=== PATIENT | male | born 1955 | race Caucasian/White ===

== ENCOUNTER 2017-03-27 11:39 | Inpatient (IN) | payer OTHER ==
[~2017-03-27] VITALS: Ht 165.1 cm; Wt 68.3 kg
--- NOTE | ~2017-03-27 | EEG ---
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 As I understand, the EEG was done without any sedation. Background activity is about 4-5 Hz and 30 microvolt. It is a very poorly formed background activity throughout the record. Photic stimulation is unremarkable. IMPRESSION: This is a severely abnormal electroencephalogram, which will be consistent with a diagnosis of encephalopathy. However, the finding is nonspecific and can occur in multiple other etiologies. Therefore, clinical correlation is recommended. Thank you very much for this referral. <ELECTRONICALLY SIGNED> By: Simon Woods MD 04/07/17 1816 1444 1609 Simon Woods MD /nt
--- NOTE | ~2017-03-27 | 2DMMODE ---
[facility] [address] [place] [address] 2 D/M-MODE ECHOCARDIOGRAM Name: OLENA COLES Room #: 215-P ADM IN M.R.#: [id number] Admission: 03/27/17 Attend Phys: Indio Suazo, Discharge: Date of : 59 Date of Service: 03/28/17 0814 Report #: [id number] THIS REPORT FOR: //name// APPROVED REPORT Study performed: 03/28/2017 06:55:18 EXAM: Limited 2D, Doppler, and color-flow Echocardiogram Patient Location: Bedside Room #: 215 Status: routine BSA: 1.77 HR: 84 bpm BP: 118/71 mmHg Other Information Study Quality: Adequate/patient in distress Indications Limited follow up echo for short of breath, obtain pulmonary pressures, elevated D-dimer. Hx: ISCM, MD, ICD 2D Dimensions LVDd: 65.12 mm Tricuspid Valve TR Peak Yonas.: 3.13 m/s RAP Estimate: 5.00 mmHg TR Peak Gr.: 39.27 mmHg PA Pressure: 44.00 mmHg Left Ventricle Left ventricle is dilated. Left ventricular systolic function is moderately decreased. Extensive inferior akinesis LVEF is 35%. Right Ventricle The right ventricle is normal size. The right ventricular systolic function is normal. Device lead is present in the right ventricle. Atria Left atrium is dilated. The right atrium size is normal. Aortic Valve The aortic valve is normal in structure. Trace aortic regurgitation. There is no aortic valvular stenosis. Mitral Valve [facility] [address] [place] [address] 2 D/M-MODE ECHOCARDIOGRAM Name: SANKETOLENA Room #: 215-P [facility] IN ..#: [id number] Admission: 03/27/17 Attend Phys: Indio Suazo, Discharge: Date of : 59 Date of Service: 03/28/17813 Report #: [id number] The mitral valve is normal in structure. Severe, eccentric mitral regurgitation. Tricuspid Valve The tricuspid valve is normal in structure. Trace tricuspid regurgitation. Estimated PAP is 45mmHg. Great Vessels IVC is normal in size and collapses >50% with inspiration. Pericardium There is no pericardial effusion. <Conclusion> Left ventricular systolic function is moderately decreased. Extensive inferior akinesis LVEF is 35%. Left atrium is dilated. The aortic valve is normal in structure. Trace aortic regurgitation. The mitral valve is normal in structure. Severe mitral regurgitation. Pulmonary artery pressure of 45mmHg There is no pericardial effusion. <ELECTRONICALLY SIGNED> By: Wali Blanton MD, [facility] 03/28/17813 3 0814 Wali Blanton MD, FACC /INF
--- NOTE | ~2017-03-27 | HC ---
[facility] [place] [address] CONSULTATION Name: ARIANAOLENA SALCIDO Morris Room #: 242-P [facility] IN .R.#: [id number] Admission: 03/27/17 Attend Phys: Indio Suazo DO Discharge: Date of : 59 Report #: [id number] THIS REPORT FOR: //name// CC: FAM unknown Indio Suazo DATE OF SERVICE: 03/28/2017 HISTORY OF PRESENT ILLNESS: This is a 61-year-old male patient who was evaluated by me because the CT scan was abnormal. I talked to the nurses looking after this patient. The family is not available. I talked to Dr. Combs. The history is complicated in this patient. As I understand, this patient has a pacemaker. He was admitted with cardiac problems and he had elevated troponin. He has a history of cardiomyopathy. He was feeling anxious and then he had a cardiopulmonary arrest. It was a difficult resuscitation as I understand from Dr. Noland, but they finally were able to revive him. If I understand correctly, the cardiac arrest was around 10:30. Since then, the patient has been unresponsive. His pupils are not reactive and he is having involuntary movements. He is not on cooling protocol anymore as I understand. So, the scenario is that around 10:30, he had a cardiac arrest with ventricular fibrillation as I understand. Since then, his blood pressure is low and he is on pressor. As a routine evaluation for the cardiopulmonary arrest, a CT scan was done. CT scan showed a question of stroke, which is evolving in this patient and because of that, Neurology consultation was requested after the CT scan was done. REVIEW OF SYSTEMS: Indicate that this patient has numerous medical problems and those problems were reviewed. Even prior to this arrest, it looks like this patient had hypoxemia and elevated troponin. He also has a prior history of coronary artery disease. This patient also has a history of nicotine use. He has a history of cardiomyopathy. PAST MEDICAL HISTORY: Positive for pretty significant kidney problems and he also has a pacemaker as I understand. FAMILY HISTORY: Unavailable. SOCIAL HISTORY: Does have a history of smoking. PHYSICAL EXAMINATION: Pretty limited in this patient. This patient is having involuntary movements, which is difficult to pinpoint, but may be seizures. Pupils are not reactive according to nurses. He is getting a PICC line placed at the moment. 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 [facility] [address] [place] [address] CONSULTATION Name: OLENA COLES Room #: 242-P [facility] IN ..#: [id number] Admission: 03/27/17 Attend Phys: Indio Suazo DO Discharge: Date of : 59 Report #: [id number] How severe and how reversible it is we need to determine with further testing. He does appear to have question of ischemia, but that may be just part of his ischemic encephalopathy. Even if he had a stroke, he never showed any symptoms of that and that should not cause him that much symptom as he is having. It looks like he may have had an AR. He had a cardiac arrest and even if he has a CT scan, it looks like an incidental finding and his biggest problem appear to be hypoxic encephalopathy. His treatment is difficult. If we had an MRI that will be a contraindication for TPA. Otherwise, also the patient is well beyond the 3-hour window for any TPA and the question of stroke is not even fully established in this patient. We cannot even do any further evaluation. He has a pacemaker, so we cannot do an MRI. His BUN and creatinine is very high, so we cannot do a CT angio or CT perfusion. No family member is there and as mentioned above when the consult was called, it was well beyond 3 hours window for TPA anyway, but as mentioned above, the finding of stroke on the CT scan does not explain his symptom and his symptoms appear to be secondary to hypoxic encephalopathy. We will discuss with the family. I will get an EEG done. I will start him on Keppra. After EEG is available, we will try to talk to the family. A supplemental note will be dictated after the EEG is reviewed and after I had an opportunity to talk to the family. Thank you very much for this referral. <ELECTRONICALLY SIGNED> By: Simon Woods MD 04/07/17 1815 1445 7161 Simon Woods MD /nt
--- NOTE | ~2017-03-27 | EKG ---
[address] [address] ELECTROCARDIOGRAM REPORT Name: OLENA COELS Room #: 242-P ADM IN M.R.#: [id number] Admission: 03/27/17 Attend Phys: Indio Suazo DO Discharge: Date of : 59 Report #: [id number] THIS REPORT FOR: //name// [facility] Test Date: 2017-04-06 Test Time: 15:14:59 Pat Name: OLENA SANKET Department: Room: 242 P Gender: M Policy Cancellation Clerk: deandra : 1955 Requested By: Doug Low Order Number: [id number] MD: Doug Low Measurements Intervals [place] Rate: 89 P: 55 SC: 140 QRS: -81 QRSD: 170 T: 27 QT: 449 QTc: 547 Interpretive Statements Sinus rhythm Nonspecific IVCD with LAD Inferior infarct, old Abnormal lateral Q waves Compared to ECG 03/27/2017 12:08:36 Intraventricular conduction delay now present Myocardial infarct finding now present Q waves now present Electronically Signed On 04-06-2017 15:58:58 [employer] by Doug Low [email or web address] <ELECTRONICALLY SIGNED> By: Doug Low MD 04/06/17 1558 1514 1514 Doug Low MD /EPI
--- NOTE | ~2017-03-27 | EEG ---
[facility] [place] [address] ELECTROENCEPHALOGRAM Name: OLENA COLES Room #: 242-P [facility] IN M.R.#: [id number] Admission: 03/27/17 Attend Phys: Indio Suazo DO Discharge: Date of : 59 Report #: [id number] THIS REPORT FOR: //name// CC: FAM unknown Indio Suazo DATE OF SERVICE: 04/07/2017 This patient's EEG was done by placing the electrodes by standard 10/20 system of electrode placement. Both referential and sequential montages were used for recording. Background activity is low voltage and appeared to be about 5 Hz and 5 microvolt. It appeared to be showing DICTATION ENDS HERE See dee dictation <ELECTRONICALLY SIGNED> By: Simon Woods MD 04/07/17 1818 1147 1156 Simon Woods MD /nt
--- NOTE | ~2017-03-27 | EKG ---
[address] [address] ELECTROCARDIOGRAM REPORT Name: OLENA COLES Room #: 215-P ADM IN M.R.#: [id number] Admission: 03/27/17 Attend Phys: Indio Suazo DO Discharge: Date of : 59 Report #: [id number] THIS REPORT FOR: //name// [facility] ED Test Date: 2017-03-27 Test Time: 12:08:36 Pat Name: OLENA COLES Department: Room: 215 Gender: M Can Repairer: MARLEE : 1955 Requested By: Elliot Castillo Order Number: [id number] MD: Doug Low Measurements Intervals [place] Rate: 80 P: 60 VT: 150 QRS: -67 QRSD: 156 T: 74 QT: 439 QTc: 507 Interpretive Statements Ventricular-paced complexes No further analysis attempted due to paced rhythm Compared to ECG 01/26/2017 08:32:32 No significant changes Electronically Signed On 03-28-2017 8:22:43 BEZEL CUTTER by Doug Low [email or web address] <ELECTRONICALLY SIGNED> By: Doug Low MD 03/28/17 0822 07 Doug Low MD /[facility]
--- NOTE | ~2017-03-27 | HC ---
[facility] [place] [address] CONSULTATION Name: ARIANALOLYOLENA Caceres Room #: 242-P [facility] IN M.R.#: [id number] Admission: 03/27/17 Attend Phys: Indio Suazo DO Discharge: 04/10/17 Date of : 59 Report #: [id number] THIS REPORT FOR: //name// CC: FAM unknown Indio Suazo DATE OF SERVICE: 03/27/2017 REASON FOR CONSULTATION: Hypoxemia. IMPRESSION: 1. Hypoxemia, question etiology. 2. History of chronic obstructive pulmonary disease. 3. Possible pulmonary embolus with elevated D-dimer and recent travel. 4. Diarrhea and dehydration. 5. Acute kidney injury. 6. History of severe mitral regurgitation, cardiomyopathy. 7. History of hypertension. 8. Elevated troponin. PLAN: We will do mild hydration, aerosol therapy, VQ and Venous Doppler, we will use heparin for now and we will discuss further depending on renal situation. 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 The patient with decreased appetite last 3 days, abdominal pain, loose stools, positive dyspnea. No definite palpitations. ALLERGIES: None known. PAST SURGICAL HISTORY: [employer] biventricular ICD, strabismus surgery and repair. FAMILY HISTORY: Diabetes. SOCIAL HISTORY: Positive tobacco. Occasional ETOH. REVIEW OF SYSTEMS: Denies CHF, hyperlipidemia, DJD, hypertension, MR, Bi-V ICD, hypothyroidism. PHYSICAL EXAMINATION: VITAL SIGNS: Temperature 98.8, pulse 81, respiration 16, BP last in computer 93/43. GENERAL: Alert, oriented recognized my name. LUNGS: Decreased. Mild wheeze. [facility] [address] [place] [address] CONSULTATION Name: ARIANALOLYOLENA Room #: 242-P [facility] IN ..#: [id number] Admission: 03/27/17 Attend Phys: Indio Suazo DO Discharge: 04/10/17 Date of : 59 Report #: [id number] HEART: Regular with murmur. ABDOMEN: Bowel sounds present. EXTREMITIES: Showed no calf tenderness. LABORATORY DATA: D-dimer 1.42. BNP 1955. Chest x-ray, no acute. BUN 62, creatinine 3.6, sodium 130. White count 9.7, hemoglobin 14.7, platelets 148. We will follow closely with you. <ELECTRONICALLY SIGNED> By: Kelvin Mendez MD 05/07/17 2219 1721 0241 Kelvin Mendez MD /nt
--- NOTE | ~2017-03-27 | EEG ---
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 EEG was done by placing the electrodes by standard 10/20 system of electrode placement. Both referential and sequential montages were used for recording. A lot of artifact is present and the EEG virtually is uninterpretable. If cortical activity is present, it is very low amplitude activity, but it is almost impossible to distinguish from artifact. Photic stimulation is unremarkable. IMPRESSION: This patient's EEG is intermixed with lot of artifact and is virtually uninterpretable. Cortical activity appeared to be markedly suppressed and if present is masked by all the artifact which is there. A repeat EEG will be done in this patient in about 48 hours from this present EEG. Thank you very much for this referral. <ELECTRONICALLY SIGNED> By: Simon Woods MD 04/07/17 1816 0948 1038 Simon Woods MD /nt
--- NOTE | ~2017-03-27 | EEG ---
[facility] [place] [address] ELECTROENCEPHALOGRAM Name: OLENA COLES Room #: 242-P DIS IN M.R.#: [id number] Admission: 03/27/17 Attend Phys: Indio Suazo DO Discharge: 04/10/17 Date of : 59 Report #: [id number] THIS REPORT FOR: //name// CC: FAM unknown Indio Suazo DATE OF SERVICE: 04/09/2017 This patient is being evaluated for altered mental status. EEG was done by placing the electrodes by standard 10/20 system of electrode placement. Both referential and sequential montages were used for recording. Background activity in this patient's EEG is about 6 Hz and 30 microvolts. It shows a pattern suggestive of , but not classical for that. Photic stimulation is unremarkable. IMPRESSION: This is an abnormal EEG because it is consistent with encephalopathy. Thank you very much for this referral. <ELECTRONICALLY SIGNED> By: Simon Woods MD 04/10/17 1901 1312 1349 Simon Woods MD /nt
--- NOTE | ~2017-03-27 | HC ---
[facility] [place] [address] CONSULTATION Name: OLENA COLES Room #: 242-P ADM IN M.R.#: [id number] Admission: 03/27/17 Attend Phys: Indio Suazo DO Discharge: Date of : 59 Report #: [id number] THIS REPORT FOR: //name// CC: FAM unknown Indio Suazo DATE OF SERVICE: 03/27/2017 REASON FOR CONSULTATION: Acute kidney injury. REASON FOR PRESENTATION: Shortness of breath. HISTORY OF PRESENT ILLNESS: This is a very complicated 61-year-old with past medical history of chronic kidney disease. His best creatinine back in December 2016 was 1.4. It looks like that he suffers from an extensive cardiac history including and not limited to cardiomyopathy with an ejection fraction of around 20%. He is also known to have severe mitral regurgitation with large inferior wall infarct. He has had recurrent ventricular tachycardia status post biventricular ICD placement. This was also thought to be due to ischemic events. He is in the process of having being evaluated for some valvular procedures including the possibility of valve replacement. He presented with diarrhea, shortness of breath. He lost his appetite in the last 3 days. He was visiting [place] and he became more lethargic. He had incontinence of his stool. He also reported to increasing shortness of breath above his baseline. No PND or orthopnea. No syncopal episodes. He presented for further evaluation and management and was found to have an acute kidney injury with a creatinine of around 3.6. Back in October of this year, he had a cardiac catheterization, which revealed dilated left ventricle with an ejection fraction of 25% and severe mitral regurgitation. The details of his anatomy are well documented in the discharge summary and in the cardiac catheterization report. Of note is the fact that he was on losartan, spironolactone. ALLERGIES: None. MEDICATIONS: 1. Amiodarone. 2. Lipitor. 3. Carvedilol. 4. Losartan. 5. Spironolactone. 6. Levothyroxine. 7. Torsemide. PAST MEDICAL HISTORY: 1. Coronary artery disease. 2. Hyperlipidemia. [facility] [address] [place] [address] CONSULTATION Name: OLENA COLES Room #: 242-P [facility] IN ..#: [id number] Admission: 03/27/17 Attend Phys: Indio Suazo DO Discharge: Date of : 59 Report #: [id number] 3. Severe ischemic cardiomyopathy. 4. Mitral regurgitation, severe. 5. Status post biventricular ICD placement. 6. Hypothyroidism. 7. Coronary artery disease. 8. CKD with a baseline creatinine of around 1.5. PAST SURGICAL HISTORY: 1. ICD. 2. Strabismus repair. FAMILY HISTORY: Significant for hypertension. SOCIAL HISTORY: No drug or alcohol abuse. He smokes cigarettes. REVIEW OF SYSTEMS: GENERAL: No fever or chills. CARDIOVASCULAR: As per the history of present illness. PULMONARY: As per the history of present illness. GASTROINTESTINAL: As per the history of present illness. GENITOURINARY: No frequency, no urgency. PHYSICAL EXAMINATION: GENERAL: He was alert, in severe respiratory distress. VITAL SIGNS: Blood pressure initially was 170/110 in the arm, temperature 37.1. However, he dropped his blood pressure significantly. HEAD AND NECK: No jugular venous distention. CHEST: Decreased air entry bilaterally, but no crackles. MUSCULOSKELETAL: No rub detected, gallop is present. ABDOMEN: Soft, nontender. LOWER EXTREMITIES: No edema. LABORATORY DATA: Reviewed. Sodium 130, potassium 3.8, BUN was 62 and creatinine of 3.6. Platelet count was 148. Chest x-ray reviewed, no infiltrate. ASSESSMENT, IMPRESSION AND PLAN: 1. Urinary tract infection. 2. Chronic kidney disease. 3. Respiratory failure. 4. Extensive cardiac history including and not limited to ischemic cardiomyopathy, ventricular tachycardia, heart failure with an ejection fraction of around 25%, severe mitral regurgitation. 5. The patient's acute kidney injury seems to be all prerenal. I will send appropriate laboratory investigation. Hold all nephrotoxins. Hold blood [address] [address] CONSULTATION Name: OLENA COLES Room #: 242-P [facility] IN .R.#: [id number] Admission: 03/27/17 Attend Phys: Indio Suazo DO Discharge: Date of : 59 Report #: [id number] pressure medications given the significant reduction in his blood pressure. Start gentle hydration. Workup for his acute respiratory failure is being implemented including ruling him out for pulmonary embolism. 6. Gastrointestinal workup for his diarrhea. 7. Rule out influenza. 8. Ultrasound of both kidneys. 9. Place Hernandez catheter for strict input and output. 10. Reevaluate with blood gas. 11. Pulmonary consultation. 12. We will continue to follow along. <ELECTRONICALLY SIGNED> By: Hamida James MD 04/04/17 0953 2157 0256 Hamida James MD /nt
--- NOTE | ~2017-03-27 | DEA ---
[facility] [place] [address] SUMMARY Name: OLENA COLES Morris Room #: 242-P [facility] IN M.R.#: [id number] Admission: 03/27/17 Attend Phys: Indio Suazo DO Discharge: 04/10/17 Date of : 59 Report #: [id number] THIS REPORT FOR: //name// CC: FAM unknown Indio Suazo DATE OF SERVICE: 04/10/2017 DATE AND TIME OF : 04/10/2017 at 1345. HOSPITAL COURSE: The patient is a 61-year-old gentleman that was admitted after a trip to [place]. He had known severe mitral regurgitation and had not pursued care regarding this. He was found to be in congestive heart failure and admitted. Unfortunately, he developed a PEA with cardiac arrest with anoxic encephalopathy. He had been intubated after chest compressions and was stabilized. Unfortunately, he did not recover from this. After several days of intervention as well as neurology consultation, he was extubated per family wishes, and he was made a DNR/DNI and peacefully at the above date and time. The patient's body was released to the family's home of choice. <ELECTRONICALLY SIGNED> By: Indio Suazo DO 04/17/17 1443 1255 Amirah Suazo DO /nt
--- NOTE | ~2017-03-27 | EEG ---
[facility] [place] [address] ELECTROENCEPHALOGRAM Name: OLENA COLES Morris Room #: 242-P ADM IN M.R.#: [id number] Admission: 03/27/17 Attend Phys: Indio Suazo DO Discharge: Date of : 59 Report #: [id number] THIS REPORT FOR: //name// CC: FAM unknown Indio Suazo DATE OF SERVICE: 04/01/2017 This patient's EEG was done for comparison. EEG demonstrated about 6-7 Hz and 30 microvolt. This background activity sometime on the right side give a suggestion of burst suppression or periodic lateralizing epileptiform discharges. Photic stimulation is unremarkable. IMPRESSION: This patient's EEG continued to be significantly abnormal consistent with the diagnosis of encephalopathy. It appeared to be worse on the right side as compared to the left side and therefore, clinical correlation is recommended. Thank you very much for this referral. <ELECTRONICALLY SIGNED> By: Simon Woods MD 04/07/17 1816 1657 1712 Simon Woods MD /nt
--- NOTE | ~2017-03-27 | EEG ---
[facility] [place] [address] ELECTROENCEPHALOGRAM Name: OLENA COLES Room #: 242-P ADM IN M.R.#: [id number] Admission: 03/27/17 Attend Phys: Indio Suazo DO Discharge: Date of : 59 Report #: [id number] THIS REPORT FOR: //name// CC: FAM unknown Indio Suazo DATE OF SERVICE: 04/07/2017 This patient is being evaluated for altered mental status. EEG was done by placing the electrodes by standard 10/20 system of electrode placement. Both referential and sequential montages were used for recording. Background activity in this patient's EEG is about 5 Hz and 5-10 microvolt is a very low amplitude activity. Pattern suggestive of burst suppression was noticed. Photic stimulation was unremarkable. IMPRESSION: This is a severely abnormal EEG consistent with encephalopathy. The patient's EEG has deteriorated since last time. Correlation to see if he is on sedation or not should be done. The best information I have is that he is not on any sedation. <ELECTRONICALLY SIGNED> By: Simon Woods MD 04/07/17 1817 1149 1227 Simon Woods MD /nt
--- NOTE | ~2017-03-27 | HC ---
[facility] [place] [address] CONSULTATION Name: ARIANAOLENA SALCIDO Morris Room #: 250-P ADM IN M.R.#: [id number] Admission: 03/27/17 Attend Phys: Indio Suazo DO Discharge: Date of : 59 Report #: [id number] THIS REPORT FOR: //name// CC: FAM unknown Indio Suazo DATE OF SERVICE: 03/29/2017 ATTENDING PHYSICIAN: Dr. Suazo. REASON FOR CONSULTATION: Suspected aspiration pneumonitis. HISTORY OF PRESENT ILLNESS: Chart reviewed, the patient is examined. This is a 61-year-old man with extensive medical history given his age, much revolves around cardiac disease, has severe atherosclerotic coronary artery disease with previous acute myocardial infarctions, numerous, has mitral valve regurgitation that is severe. He does have a cardiomyopathy as well with an EF of 35%, who was admitted with progressive dyspnea, did have associated chest pain, dry cough and diarrhea as well. He was evaluated. He was found to have negative C. diff, was ultimately deteriorated and subsequently admitted to the hospital. In spite of defibrillator, he did require resuscitation due to bradycardia. He is currently intubated, mechanical ventilatory support. He has had some fevers. X-ray now shows evidence of pulmonary infiltrates, suspected aspiration. Sputum culture is pending, although Gram stain showed gram-positive cocci in pairs. Empirically, he has been placed on ampicillin and sulbactam at a reduced dose due to some renal failure with a creatinine in the 2-3 range. He is not responsive at this point. ALLERGIES: NONE KNOWN. MEDICATIONS: Include vancomycin, was started today. Midazolam, Unasyn, budesonide, levetiracetam, ipratropium albuterol inhaler. He is on Levophed as well, amiodarone, levothyroxine, atorvastatin and carvedilol. PAST MEDICAL HISTORY: As described above, AICD since 2016. Acute MN x 4. Congestive heart failure with setting of cardiomyopathy. Does have anxiety, hypertension, severe mitral regurgitation, hyperlipidemia, history of anxiety as well. SOCIAL HISTORY: Does smoke cigarettes, occasional ethanol. FAMILY HISTORY: Noncontributory. REVIEW OF SYSTEMS: Not obtainable. PHYSICAL EXAMINATION: [facility] [address] [place] [address] CONSULTATION Name: OLENA COLES Morris Room #: [address] [place] [address] [place] [facility].#: [id number] Admission: 03/27/17 Attend Phys: Indio Suazo DO Discharge: Date of : 59 Report #: [id number] GENERAL: Appears chronically ill, undernourished. He is supine, he is intubated. He is not responsive. VITAL SIGNS: Temperature 100.4, pulse 81, respirations 23, blood pressure 121/76. SKIN: Warm, dry. HEENT: Tubes in place. NECK: Supple. LUNGS: Few scattered coarse breath sounds. HEART: Regular. He does have a loud systolic murmur. ABDOMEN: Soft, nontender, nondistended. There are no peritoneal signs. GENITOURINARY: Deferred. RECTAL: Deferred. LABORATORY DATA: CBC: White count of 5.3, H and H 11.7 and 32.9, platelets of 106. MRSA by LATIA was negative. RVP, respiratory viral panel is pending. Sputum in progress. Gram stain did show many PMNs, many gram-positive cocci in pairs. Electrolytes: Sodium 137, potassium 3.1, chloride 100, bicarbonate is 27, BUN and creatinine 64 and 2.5, glucose of 121. ABG: PH 7.451, pCO2 of 35.6, pO2 of 86.3 and that was on 40%. Lactate was noted to be 1.71. Urinalysis, 0-5 white cells, 1-9 bacteria, previously has been 6-15 white cells, greater than 30 bacteria. Influenza antigen was negative. ProBNP elevated at 1957. Hepatic panel: AST of 1746, ALT of 933, total bilirubin of 1.2, albumin total protein of 6.1. Free T4 of 3.4. Free T3 was 3.33. TSH is low at 0.007. Chest x-ray, basilar atelectasis. ASSESSMENT: Post-code, likely complicated by aspiration with pneumonitis. We will continue empiric therapy. Culture may well be helpful in this setting. There appears to be some degree of anoxic encephalopathy as well that will certainly be the feature going forward, that is the case. We will adjust antimicrobials as needed. <ELECTRONICALLY SIGNED> By: Dawood Dumont MD 03/30/17 [id number] Dawood Dumont MD /nt
[~2017-03-27 11:39] MED LIST: ALBUTEROL2.5 MG/0.5 INH; ALDACTONE25 MG PO; ATORVASTATIN CA40 MG PO; CARVEDILOL12.5 MG PO; CEPACOL SORE T1 EAC7 PO; COZAAR 25 MG TA25 M1 PO; DEMADEX20 MG PO; MEXILETINE 150150 MG PO; NICOTINE TRANSD21 M1 TRANSDERM; PACERONE 200 M200 M1 PO; SYNTHROID100 MCG PO
[2017-03-27 12:17] LABS: HEMATOCRIT 41.5 % (42.0-52.0); HEMOGLOBIN 14.7 gm/dL (14.0-18.0); MCH 33.9 pg (26.0-34.0); MCHC 35.3 g/dL (28.0-37.0); MCV 95.8 fL (80.0-100.0); RBC 4.33 mil/uL (4.50-6.00); WBC 9.7 thou/uL (4.0-11.0)
[2017-03-27 12:21] LABS: CALCIUM 8.7 mg/dL (8.5-10.1); CREATININE 3.6 mg/dL (0.7-1.3); POTASSIUM 3.8 mmol/L (3.5-5.1)
[2017-03-27 12:34] LABS: TROPONIN-I 0.68 ng/mL (<0.06)
[2017-03-27 13:42] VITALS: BP 178/139
[2017-03-27 14:58] VITALS: BP 93/43
[2017-03-27 18:24] LABS: APTT 31.6 Seconds (24.5-32.8); INR 1.1; PROTIME 11.6 Seconds (9.3-11.4)
[2017-03-27 18:25] LABS: BE(vivo) -3.8 mmol/L (-2 to +3); HCO3 22.8 mmol/L (22.0-26.0); PO2 104.3 mmHg (80.0-100.0); sO2 97.2 % (92.0-98.0)
[2017-03-27 18:27] LABS: pH 7.303 (7.360-7.450)
[2017-03-27 19:32] VITALS: BP 92/64
[2017-03-27 19:59] LABS: URINE BILIRUBIN NEGATIVE (Negative); URINE BLOOD 2+ (Negative); URINE CLARITY CLEAR; URINE COLOR YELLOW; URINE GLUCOSE-RANDOM* NEGATIVE (Negative); URINE KETONES NEGATIVE (Negative); URINE LEUKOCYTES NEGATIVE (Negative); URINE NITRITE NEGATIVE (Negative); URINE PROTEIN (DIPSTICK) NEGATIVE (Negative); URINE UROBILINOGEN 0.2 E.U./dl (0.2-1.0)
[2017-03-27 20:08] LABS: URINE CREATININE-RANDOM* 107.4 mg/dL
[2017-03-27 20:17] LABS: BACTERIA >30 Many /HPF (None Seen); FINE GRANULAR CASTS >10 Many /LPF (None Seen); HYALINE CASTS >10 Many /LPF (None Seen); SQUAMOUS 0-3 Few /LPF (0-3); URINE RBC 0-2 Rare /HPF (0-2); URINE WBC 6-15 Few /HPF (0-5)
[2017-03-27 20:18] LABS: AMORPHOUS URATES Few /LPF (None Seen); MUCUS 4-6 Moderate strn/LPF (None Seen)
[2017-03-27 23:55] VITALS: BP 101/55
[2017-03-28] VITALS (65 sets, daily range): BP systolic 77–152; BP diastolic 37–107
[2017-03-28 03:59] LABS: ALBUMIN 3.2 g/dL (3.4-5.0); CALCIUM 8.1 mg/dL (8.5-10.1); CREATININE 2.8 mg/dL (0.7-1.3); PHOSPHORUS 6.2 mg/dL (2.5-4.9); POTASSIUM 3.6 mmol/L (3.5-5.1)
[2017-03-28 04:42] LABS: HEMATOCRIT 36.2 % (42.0-52.0); MCH 33.6 pg (26.0-34.0); MCHC 34.9 g/dL (28.0-37.0); MCV 96.4 fL (80.0-100.0); PLATELET COUNT 131 thou/uL (150-400); RBC 3.76 mil/uL (4.50-6.00); RDW 13.5 % (10.5-14.5); WBC 7.9 thou/uL (4.0-11.0)
[2017-03-28 04:45] LABS: HEMOGLOBIN 12.6 gm/dL (14.0-18.0)
[2017-03-28 06:08] LABS: ABSOLUTE NEUTROPHILS 7.1 thou/uL (1.4-8.2); TOXIC GRANULATION 1+
[2017-03-28 11:18] LABS: BE(vivo) -5.5 mmol/L (-2 to +3); HCO3 24.3 mmol/L (22.0-26.0); PCO2 68.5 mmHg (35.0-45.0); PO2 312.1 mmHg (80.0-100.0); pH 7.168 (7.360-7.450); sO2 99.6 % (92.0-98.0)
[2017-03-28 12:29] LABS: HEMATOCRIT 34.6 % (42.0-52.0); HEMOGLOBIN 12.1 gm/dL (14.0-18.0); MCH 33.8 pg (26.0-34.0); MCV 96.5 fL (80.0-100.0); PLATELET COUNT 116 thou/uL (150-400); RBC 3.58 mil/uL (4.50-6.00); RDW 13.5 % (10.5-14.5); WBC 5.5 thou/uL (4.0-11.0)
[2017-03-28 12:39] LABS: FIBRINOGEN 382.3 mg/dL (210-360)
[2017-03-28 12:40] LABS: INR 1.1; PROTIME 11.5 Seconds (9.3-11.4)
[2017-03-28 12:50] LABS: CALCIUM 8.1 mg/dL (8.5-10.1); CREATININE 2.9 mg/dL (0.7-1.3); PHOSPHORUS 9.5 mg/dL (2.5-4.9); POTASSIUM 3.9 mmol/L (3.5-5.1)
[2017-03-28 12:56] LABS: TROPONIN-I 0.62 ng/mL (<0.06)
[2017-03-28 13:03] LABS: D-DIMER 10.13 ug/mLFEU (0.19-0.50)
[2017-03-28 13:23] LABS: ABSOLUTE NEUTROPHILS 5.3 thou/uL (1.4-8.2); PLATELET ESTIMATE SLIGHTLY DECREASED
[2017-03-28 14:54] LABS: TSH 0.007 uIU/mL (0.358-3.740)
[2017-03-28 15:50] LABS: BE(vivo) -0.7 mmol/L (-2 to +3); HCO3 24.5 mmol/L (22.0-26.0); PCO2 42.4 mmHg (35.0-45.0); PO2 115.7 mmHg (80.0-100.0); pH 7.379 (7.360-7.450); sO2 98.1 % (92.0-98.0)
[2017-03-28 19:26] LABS: ALBUMIN 2.9 g/dL (3.4-5.0); DIRECT BILIRUBIN 0.7 mg/dL (<0.1-0.3); TOTAL BILIRUBIN 1.2 mg/dL (<0.1-1.0); TOTAL PROTEIN 6.1 g/dL (6.4-8.2)
[2017-03-29] VITALS (50 sets, daily range): BP systolic 87–132; BP diastolic 56–89
[2017-03-29 00:22] LABS: URINE BILIRUBIN NEGATIVE (Negative); URINE BLOOD 3+ (Negative); URINE CLARITY CLEAR; URINE COLOR YELLOW; URINE GLUCOSE-RANDOM* NEGATIVE (Negative); URINE KETONES NEGATIVE (Negative); URINE LEUKOCYTES-REFLEX NEGATIVE (Negative); URINE NITRITE-REFLEX NEGATIVE (Negative); URINE PROTEIN (DIPSTICK) 1+ (Negative); URINE UROBILINOGEN 0.2 E.U./dl (0.2-1.0)
[2017-03-29 00:45] LABS: MUCUS 4-6 Moderate strn/LPF (None Seen); SQUAMOUS None Seen /LPF (0-3)
[2017-03-29 00:46] LABS: BACTERIA-REFLEX 1-9 Few /HPF (None Seen); CRYSTALS None Seen /LPF (None Seen); URINE RBC 3-10 Few /HPF (0-2); URINE WBC-REFLEX 0-5 Rare /HPF (0-5)
[2017-03-29 00:47] LABS: AMORPHOUS URATES Moderate /LPF (None Seen); FINE GRANULAR CASTS >10 Many /LPF (None Seen)
[2017-03-29 04:39] LABS: BE(vivo) 0.6 mmol/L (-2 to +3); HCO3 24.2 mmol/L (22.0-26.0); PCO2 35.6 mmHg (35.0-45.0); PO2 86.3 mmHg (80.0-100.0); pH 7.451 (7.360-7.450)
[2017-03-29 04:48] LABS: HEMATOCRIT 32.9 % (42.0-52.0); HEMOGLOBIN 11.7 gm/dL (14.0-18.0); MCH 34.2 pg (26.0-34.0); MCHC 35.7 g/dL (28.0-37.0); MCV 95.8 fL (80.0-100.0); PLATELET COUNT 106 thou/uL (150-400); RBC 3.43 mil/uL (4.50-6.00); RDW 13.5 % (10.5-14.5); WBC 5.3 thou/uL (4.0-11.0)
[2017-03-29 05:13] LABS: CALCIUM 8.5 mg/dL (8.5-10.1); CREATININE 2.5 mg/dL (0.7-1.3); POTASSIUM 3.1 mmol/L (3.5-5.1)
[2017-03-29 06:20] LABS: ABSOLUTE NEUTROPHILS 4.6 thou/uL (1.4-8.2)
[2017-03-29 06:21] LABS: LARGE PLATELETS OCCASIONAL
[2017-03-30] VITALS (32 sets, daily range): BP systolic 88–128; BP diastolic 54–72
[2017-03-30 05:15] LABS: HEMATOCRIT 31.1 % (42.0-52.0); HEMOGLOBIN 11.1 gm/dL (14.0-18.0); MCH 34.4 pg (26.0-34.0); MCHC 35.6 g/dL (28.0-37.0); MCV 96.6 fL (80.0-100.0); PLATELET COUNT 100 thou/uL (150-400); RBC 3.22 mil/uL (4.50-6.00); RDW 13.6 % (10.5-14.5); WBC 5.1 thou/uL (4.0-11.0)
[2017-03-30 05:33] LABS: ALBUMIN 2.3 g/dL (3.4-5.0); CALCIUM 8.4 mg/dL (8.5-10.1); CREATININE 1.8 mg/dL (0.7-1.3); PHOSPHORUS 1.9 mg/dL (2.5-4.9); POTASSIUM 3.5 mmol/L (3.5-5.1)
[2017-03-30 11:28] LABS: ABSOLUTE NEUTROPHILS 4.1 thou/uL (1.4-8.2); ANISOCYTOSIS SLIGHT
[2017-03-31] VITALS (40 sets, daily range): BP systolic 87–173; BP diastolic 54–95
[2017-03-31 05:06] LABS: HEMATOCRIT 37.2 % (42.0-52.0); HEMOGLOBIN 12.6 gm/dL (14.0-18.0); MCH 33.4 pg (26.0-34.0); MCHC 33.9 g/dL (28.0-37.0); MCV 98.6 fL (80.0-100.0); PLATELET COUNT 156 thou/uL (150-400); RBC 3.77 mil/uL (4.50-6.00); RDW 13.9 % (10.5-14.5); WBC 8.2 thou/uL (4.0-11.0)
[2017-03-31 05:24] LABS: ALBUMIN 2.5 g/dL (3.4-5.0); CALCIUM 8.6 mg/dL (8.5-10.1); CREATININE 1.9 mg/dL (0.7-1.3); PHOSPHORUS 3.1 mg/dL (2.5-4.9); POTASSIUM 4.1 mmol/L (3.5-5.1)
[2017-03-31 05:32] LABS: ABSOLUTE NEUTROPHILS 6.5 thou/uL (1.4-8.2); ATYPICAL LYMPHS 2 %
[2017-04-01] VITALS (48 sets, daily range): BP systolic 92–151; BP diastolic 63–97
[2017-04-01 01:08] LABS: ADENOVIRUS Negative (Negative); INFLUENZA A Positive (Negative); INFLUENZA B Negative (Negative); METAPNEUMOVIRUS Negative (Negative); PARAINFLUENZA 1 Negative (Negative); PARAINFLUENZA 2 Negative (Negative); PARAINFLUENZA 3 Negative (Negative); RHINOVIRUS Negative (Negative); RSV A Negative (Negative); RSV B Negative (Negative)
[2017-04-01 05:38] LABS: HEMATOCRIT 32.1 % (42.0-52.0); HEMOGLOBIN 11.1 gm/dL (14.0-18.0); MCH 34.1 pg (26.0-34.0); MCHC 34.6 g/dL (28.0-37.0); MCV 98.6 fL (80.0-100.0); PLATELET COUNT 153 thou/uL (150-400); RBC 3.25 mil/uL (4.50-6.00); RDW 14.4 % (10.5-14.5); WBC 5.8 thou/uL (4.0-11.0)
[2017-04-01 06:00] LABS: CALCIUM 8.5 mg/dL (8.5-10.1); CREATININE 1.8 mg/dL (0.7-1.3); POTASSIUM 3.7 mmol/L (3.5-5.1)
[2017-04-01 09:06] LABS: ABSOLUTE NEUTROPHILS 4.5 thou/uL (1.4-8.2); ATYPICAL LYMPHS 1 %
[2017-04-01 13:45] LABS: BE(vivo) 1.5 mmol/L (-2 to +3); HCO3 25.1 mmol/L (22.0-26.0); PCO2 36.3 mmHg (35.0-45.0); PO2 107.4 mmHg (80.0-100.0); pH 7.458 (7.360-7.450); sO2 98.2 % (92.0-98.0)
[2017-04-02] VITALS (48 sets, daily range): BP systolic 82–131; BP diastolic 51–108
[2017-04-02 05:40] LABS: ALBUMIN 1.9 g/dL (3.4-5.0); CALCIUM 8.4 mg/dL (8.5-10.1); CREATININE 1.7 mg/dL (0.7-1.3); PHOSPHORUS 3.1 mg/dL (2.5-4.9)
[2017-04-03] VITALS (42 sets, daily range): BP systolic 94–148; BP diastolic 54–118
[2017-04-03 05:08] LABS: HEMOGLOBIN 10.2 gm/dL (14.0-18.0); MCH 33.9 pg (26.0-34.0); MCV 99.7 fL (80.0-100.0); PLATELET COUNT 185 thou/uL (150-400); RBC 3.01 mil/uL (4.50-6.00); WBC 6.2 thou/uL (4.0-11.0)
[2017-04-03 05:25] LABS: ALBUMIN 1.8 g/dL (3.4-5.0); CREATININE 1.4 mg/dL (0.7-1.3); PHOSPHORUS 2.6 mg/dL (2.5-4.9); POTASSIUM 3.9 mmol/L (3.5-5.1); TOTAL BILIRUBIN 0.3 mg/dL (<0.1-1.0); TOTAL PROTEIN 5.6 g/dL (6.4-8.2)
[2017-04-03 05:49] LABS: HCO3 24.9 mmol/L (22.0-26.0); PO2 91.9 mmHg (80.0-100.0); pH 7.446 (7.360-7.450); sO2 97.3 % (92.0-98.0)
[2017-04-03 08:46] LABS: ABSOLUTE NEUTROPHILS 4.7 thou/uL (1.4-8.2); ATYPICAL LYMPHS 1 %
[2017-04-03 08:47] LABS: ANISOCYTOSIS SLIGHT
[2017-04-04] VITALS (30 sets, daily range): BP systolic 96–137; BP diastolic 55–83
[2017-04-04 04:34] LABS: ABSOLUTE NEUTROPHILS 6.1 thou/uL (1.4-8.2); BASOPHILS 0.4 % (0.0-2.0); EOSINOPHILS 1.6 % (0.0-3.0); HEMATOCRIT 30.5 % (42.0-52.0); HEMOGLOBIN 10.9 gm/dL (14.0-18.0); LYMPHOCYTES 7.3 % (24.0-44.0); MCHC 35.6 g/dL (28.0-37.0); MCV 98.4 fL (80.0-100.0); MONOCYTES 10.8 % (1.0-8.0); PLATELET COUNT 219 thou/uL (150-400); POLYS 79.9 % (36.0-66.0); RDW 14.1 % (10.5-14.5); WBC 7.6 thou/uL (4.0-11.0)
[2017-04-04 04:47] LABS: ALBUMIN 1.8 g/dL (3.4-5.0); CALCIUM 8.1 mg/dL (8.5-10.1); CREATININE 1.3 mg/dL (0.7-1.3); PHOSPHORUS 2.9 mg/dL (2.5-4.9); POTASSIUM 4.1 mmol/L (3.5-5.1)
[2017-04-05] VITALS (24 sets, daily range): BP systolic 95–140; BP diastolic 55–87
[2017-04-05 05:21] LABS: BE(vivo) -1.7 mmol/L (-2 to +3); HCO3 22.3 mmol/L (22.0-26.0); PCO2 35.3 mmHg (35.0-45.0); pH 7.418 (7.360-7.450); sO2 97.8 % (92.0-98.0)
[2017-04-05 05:33] LABS: HEMATOCRIT 30.2 % (42.0-52.0); HEMOGLOBIN 10.3 gm/dL (14.0-18.0); MCH 33.7 pg (26.0-34.0); MCV 99.1 fL (80.0-100.0); PLATELET COUNT 229 thou/uL (150-400); RBC 3.05 mil/uL (4.50-6.00); RDW 14.2 % (10.5-14.5); WBC 8.7 thou/uL (4.0-11.0)
[2017-04-05 05:41] LABS: CALCIUM 8.3 mg/dL (8.5-10.1); CREATININE 1.4 mg/dL (0.7-1.3); POTASSIUM 4.5 mmol/L (3.5-5.1)
[2017-04-05 08:20] LABS: ABSOLUTE NEUTROPHILS 6.7 thou/uL (1.4-8.2)
[2017-04-05 08:21] LABS: ANISOCYTOSIS 1+
[2017-04-05 08:22] LABS: POLYCHROMASIA OCCASIONAL
[2017-04-06] VITALS (23 sets, daily range): BP systolic 97–160; BP diastolic 59–78
[2017-04-06 04:55] LABS: HEMATOCRIT 29.9 % (42.0-52.0); MCH 33.7 pg (26.0-34.0); MCHC 33.5 g/dL (28.0-37.0); MCV 100.8 fL (80.0-100.0); RBC 2.97 mil/uL (4.50-6.00); RDW 14.3 % (10.5-14.5); WBC 8.7 thou/uL (4.0-11.0)
[2017-04-06 05:25] LABS: HCO3 22.1 mmol/L (22.0-26.0); PCO2 35.1 mmHg (35.0-45.0); PO2 101.4 mmHg (80.0-100.0); pH 7.417 (7.360-7.450); sO2 97.8 % (92.0-98.0)
[2017-04-06 05:28] LABS: ALBUMIN 1.8 g/dL (3.4-5.0); CALCIUM 8.4 mg/dL (8.5-10.1); CREATININE 1.2 mg/dL (0.7-1.3); POTASSIUM 4.4 mmol/L (3.5-5.1); TOTAL BILIRUBIN 0.3 mg/dL (<0.1-1.0)
[2017-04-07] VITALS (11 sets, daily range): BP systolic 120–134; BP diastolic 67–81
[2017-04-07 05:03] LABS: BE(vivo) -3.3 mmol/L (-2 to +3); HCO3 20.7 mmol/L (22.0-26.0); PCO2 33.4 mmHg (35.0-45.0); PO2 94.8 mmHg (80.0-100.0); sO2 97.4 % (92.0-98.0)
[2017-04-07 05:33] LABS: HEMATOCRIT 28.6 % (42.0-52.0); HEMOGLOBIN 9.7 gm/dL (14.0-18.0); MCH 33.8 pg (26.0-34.0); MCHC 33.8 g/dL (28.0-37.0); MCV 100.1 fL (80.0-100.0); RBC 2.86 mil/uL (4.50-6.00); RDW 14.2 % (10.5-14.5); WBC 8.4 thou/uL (4.0-11.0)
[2017-04-07 05:48] LABS: ALBUMIN 1.8 g/dL (3.4-5.0); CALCIUM 8.7 mg/dL (8.5-10.1); CREATININE 1.1 mg/dL (0.7-1.3); POTASSIUM 4.5 mmol/L (3.5-5.1)
[2017-04-08] VITALS (23 sets, daily range): BP systolic 89–134; BP diastolic 56–81
[2017-04-09] VITALS (34 sets, daily range): BP systolic 89–151; BP diastolic 52–85
[2017-04-09 05:20] LABS: ABSOLUTE NEUTROPHILS 7.3 thou/uL (1.4-8.2); BASOPHILS 0.7 % (0.0-2.0); EOSINOPHILS 0.7 % (0.0-3.0); HEMATOCRIT 30.3 % (42.0-52.0); LYMPHOCYTES 8.6 % (24.0-44.0); MCH 32.8 pg (26.0-34.0); MCV 99.5 fL (80.0-100.0); MONOCYTES 7.1 % (1.0-8.0); PLATELET COUNT 279 thou/uL (150-400); POLYS 82.9 % (36.0-66.0); RBC 3.04 mil/uL (4.50-6.00); RDW 14.3 % (10.5-14.5); WBC 8.8 thou/uL (4.0-11.0)
[2017-04-09 05:27] LABS: BE(vivo) -0.2 mmol/L (-2 to +3); HCO3 24.1 mmol/L (22.0-26.0); PCO2 37.8 mmHg (35.0-45.0); pH 7.422 (7.360-7.450)
[2017-04-09 05:41] LABS: ALBUMIN 1.9 g/dL (3.4-5.0); PHOSPHORUS 4.8 mg/dL (2.5-4.9); POTASSIUM 4.4 mmol/L (3.5-5.1); TOTAL BILIRUBIN 0.3 mg/dL (<0.1-1.0); TOTAL PROTEIN 6.6 g/dL (6.4-8.2)
[2017-04-10] VITALS (45 sets, daily range): BP systolic 74–103; BP diastolic 36–71
== END 2017-04-10 13:45 | DRG 207 ==
LOC: ER 11:39 → 2N 13:30 → EROBS 13:30 → 2N 15:40 → ICU 03-28 11:07
PROVIDERS: Emergency Medicine; Family Medicine; Hospitalist; Internal Medicine; Internal Medicine Gastroenterology; Internal Medicine Pulmonary Disease; Nurse Practitioner Acute Care; Psychiatry & Neurology Neuromuscular Medicine
PROC: 5A1955Z Respiratory Ventilation, Greater than 96 Consecutive Hours (ICD-10-PCS; principal; 2017-03-28)
PROC: 5A12012 Performance of Cardiac Output, Single, Manual (ICD-10-PCS; 2017-03-28)
PROC: 02HV33Z Insertion of Infusion Device into Superior Vena Cava, Percutaneous Approach (ICD-10-PCS; 2017-03-28)
PROC: 0BH17EZ Insertion of Endotracheal Airway into Trachea, Via Natural or Artificial Opening (ICD-10-PCS; 2017-03-28)
DX: J96.01 Acute respiratory failure with hypoxia (principal); I21.4 Non-ST elevation (NSTEMI) myocardial infarction; J13 Pneumonia due to Streptococcus pneumoniae; K72.00 Acute and subacute hepatic failure without coma; G93.1 Anoxic brain damage, not elsewhere classified; N17.9 Acute kidney failure, unspecified; E87.1 Hypo-osmolality and hyponatremia; N39.0 Urinary tract infection, site not specified; I50.20 Unspecified systolic (congestive) heart failure; I13.0 Hypertensive heart and chronic kidney disease with heart failure and stage 1 through stage 4 chronic kidney disease, or unspecified chronic kidney disease; J44.1 Chronic obstructive pulmonary disease with (acute) exacerbation; E87.0 Hyperosmolality and hypernatremia; J44.0 Chronic obstructive pulmonary disease with (acute) lower respiratory infection; F41.9 Anxiety disorder, unspecified; I25.10 Atherosclerotic heart disease of native coronary artery without angina pectoris; E78.5 Hyperlipidemia, unspecified; F17.210 Nicotine dependence, cigarettes, uncomplicated; E86.0 Dehydration; R19.7 Diarrhea, unspecified; I25.5 Ischemic cardiomyopathy; N18.9 Chronic kidney disease, unspecified; I34.0 Nonrheumatic mitral (valve) insufficiency; Z66 Do not resuscitate; J11.1 Influenza due to unidentified influenza virus with other respiratory manifestations; E87.6 Hypokalemia; I95.9 Hypotension, unspecified; M19.90 Unspecified osteoarthritis, unspecified site; E78.00 Pure hypercholesterolemia, unspecified; Z82.49 Family history of ischemic heart disease and other diseases of the circulatory system; Z95.810 Presence of automatic (implantable) cardiac defibrillator; I25.2 Old myocardial infarction; Z83.3 Family history of diabetes mellitus; Z79.899 Other long term (current) drug therapy; Z86.74 Personal history of sudden cardiac arrest; Z91.19 Patient's noncompliance with other medical treatment and regimen; Z86.73 Personal history of transient ischemic attack (TIA), and cerebral infarction without residual deficits; Z28.21 Immunization not carried out because of patient refusal
CPT/HCPCS: 10078; 10081; 27000